=== PATIENT | male | born 1955 | race Caucasian/White ===

== ENCOUNTER 2016-11-30 05:20 | Emergency (ER) | payer BC ==
[2016-11-30] MEDS ORDERED: SODIUM CHLORIDE 0.9% 1,000 ML ONE ×3 (05:34→05:54)
[2016-11-30] MEDS ORDERED: MIDAZOLAM DRIP 100 ML IV ONE (05:54)
[2016-11-30] MEDS ORDERED: MIDAZOLAM HCL 5 MG/5 ML VIAL ONE (05:57)
[2016-11-30 06:02] VITALS: RESP 14
[2016-11-30] MEDS ORDERED: NOREPINEPHRINE 1 MG/ML 4 ML VIAL IV ONE ×2 (06:07→06:10)
[2016-11-30] MEDS ORDERED: DEXTROSE 5% AVIVA 250 ML IV ONE (06:07)
[2016-11-30] MEDS ORDERED: ETOMIDATE 2 MG/ML VIAL IV ONE (07:34)
[2016-11-30] MEDS ORDERED: SUCCINYLCHOLINE 20 MG/ML VL ONE (07:34)
== END 2016-11-30 07:38 | disposition other institution (70) ==
LOC: ER 05:20
DX: J96.90 Respiratory failure, unspecified, unspecified whether with hypoxia or hypercapnia (principal); R65.20 Severe sepsis without septic shock; E87.2 Acidosis; D72.829 Elevated white blood cell count, unspecified; I95.9 Hypotension, unspecified; R41.82 Altered mental status, unspecified; C34.90 Malignant neoplasm of unspecified part of unspecified bronchus or lung; Z87.891 Personal history of nicotine dependence; Z79.899 Other long term (current) drug therapy; Z79.84 Long term (current) use of oral hypoglycemic drugs; E11.9 Type 2 diabetes mellitus without complications; E78.5 Hyperlipidemia, unspecified; I25.10 Atherosclerotic heart disease of native coronary artery without angina pectoris; I25.2 Old myocardial infarction
CPT/HCPCS: 36415; 36600; 51702; 71010; 80053; 81001; 82553; 82803; 83605; 83880; 84484; 85025; 85610; 85730; 87040; 87077; 93005; 94002; 94799; 96361; 96365; 96367; 96375